=== PATIENT | male | born 1995 | race Caucasian/White ===

== ENCOUNTER 2020-10-08 11:23 | Emergency (ER) | payer OTHER ==
[~2020-10-08] VITALS: Ht 175.3 cm; Wt 95.5 kg
[~2020-10-08 11:23] MED LIST: HYDR-3715 PO; IBUP200T45 PO
--- OUTSIDE RECORDS SUMMARY | 2020-10-08 11:33 | CCD ---
Author Author [facility] Organization [facility] Address Unknown Phone Unavailable Support Name Relationship Address Phone PHAM Next Of Kin [address] [place], [place] [id number] Lauren HAGEN Next Of [address] [place] [address] [employer] Next Of [address] [place] [address] DANIEL QUANPANTERA HAGEN Next Of [address] [place] [address] JOSE SUNSHINE Next Of Kin [address] [place] [address] Galen HAGEN Next Of Kin [address] [place] [address] [facility] Next Of Kin Unknown Unavailable Re-disclosure Warning The records that you are about to access may contain information from federally-assisted alcohol or drug abuse programs. If such information is present, then the following federally mandated warning applies: This information has been disclosed to you from records protected by federal confidentiality rules (42 CFR part 2). The federal rules prohibit you from making any further disclosure of this information unless further disclosure is expressly permitted by the written consent of the person to whom it pertains or as otherwise permitted by 42 CFR part 2. A general authorization for the release of medical or other information is NOT sufficient for this purpose. The Federal rules restrict any use of the information to criminally investigate or prosecute any alcohol or drug abuse patient.The records that you are about to access may contain highly sensitive health information, the redisclosure of which is protected by Article 27-F of the [facility] Public Health law. If you continue you may have access to information: Regarding HIV / AIDS; Provided by facilities licensed or operated by the [facility] Office of Mental Health; or Provided by the [facility] Office for People With Developmental Disabilities. If such information is present, then the following [facility] mandated warning applies: This information has been disclosed to you from confidential records which are protected by state law. State law prohibits you from making any further disclosure of this information without the specific written consent of the person to whom it pertains, or as otherwise permitted by law. Any unauthorized further disclosure in violation of state law may result in a fine or long term sentence or both. A general authorization for the release of medical or other information is NOT sufficient authorization for further disc losure. Family History Family Member Name Family Member Gender Family Member Status Date o f Status Description Data Source(s) Unknown Female Problem [facility] ([facility], ) Insurance Providers Payer name Policy type / Coverage type Policy ID Covered alliance party ID Covered alliance party's relationship to lorenz Policy Lorenz Plan Information [facility] O [id number] C [id number] [facility] [id number] CHILD [id number] [facility] [id number] CHILD [id number] [employer] COMP INS [id number] EMPLOYEE [id number] WORKMANS COMP INS [id number] EMPLOYEE [id number] WORKMANS COMP INS [id number] EMPLOYEE [id number] REVERE [id number] EMPLOYEE [id number] [facility] P[facility] 302/307 [id number] [id number] [employer] B [id number] C [id number] [id number] PERSONAL PAY XX SELF XX
--- NOTE | 2020-10-08 12:00 | REP ---
INDICATION: FALL COMPARISON: None. TECHNIQUE: Four views left knee. FINDINGS: There is no evidence of acute fracture, dislocation, or intrinsic bone disease. IMPRESSION: No fracture or dislocation. <Electronically signed by Cezar Morales > 10/08/20 [id number]
--- OUTSIDE RECORDS SUMMARY | 2020-10-08 12:01 | CCD ---
Author Author [facility] Organization [facility] Address Unknown Phone Unavailable Support Name Relationship Address Phone PHAM Next Of Kin [address] [place], [place] [id number] Lauren HAGEN Next Of Kin [address] [place] [address] CELL [employer] Next Of Kin [address] [place] [address] DANIEL QUANPANTERA HAGEN Next Of Kin [address] [place] [address] JOSE SUNSHINE Next Of Kin [address] [place] [address] Galen HAGEN Next Of Kin [address] [place] [address] [facility] Next Of Kin Unknown Unavailable Re-disclosure [...] is protected by Article 27-F of the [facility] Public Health law. If you continue you may have access to information: Regarding HIV / AIDS; Provided by facilities licensed or operated by the [facility] Office of Mental Health; or Provided by the [facility] Office for People With Developmental Disabilities. If such information is present, then the following [facility] mandated warning applies: This information has been [...] law may result in a fine or chcf sentence or both. A general authorization for the release of medical or other information is NOT sufficient authorization for further disc losure. Family History Family Member Name Family Member Gender Family Member Status Date o f Status Description Data Source(s) Unknown Female Problem [facility] ([facility], ) Insurance Providers Payer name Policy type / Coverage type Policy ID Covered libertarian ID Covered libertarian's relationship to lorenz Policy Lorenz Plan Information [facility] O [id number] C [id number] [facility] [id number] CHILD [id number] [facility] [id number] CHILD [id number] WORKMANS COMP INS [id number] EMPLOYEE [id number] WORKMANS COMP INS [id number] EMPLOYEE [id number] WORKMANS COMP INS [id number] EMPLOYEE [id number] REVERE [id number] EMPLOYEE [id number] [facility]/307 [id number] [id number] [employer] B [id number] C [id number] [id number] PERSONAL PAY XX SELF XX
[2020-10-08 13:20] VITALS: BP 129/79
== END 2020-10-08 13:43 | disposition home or self-care (01) ==
LOC: M ED 11:23
DX: S86.302A Unspecified injury of muscle(s) and tendon(s) of peroneal muscle group at lower leg level, left leg, initial encounter (principal); W01.198A Fall on same level from slipping, tripping and stumbling with subsequent striking against other object, initial encounter; Y92.89 Other specified places as the place of occurrence of the external cause; Y93.89 Activity, other specified; Y99.0 Civilian activity done for income or pay; Z88.5 Allergy status to narcotic agent

== ENCOUNTER → 2021-05-27 | Outpatient (REF) | payer OTHER ==
[~2021-05-27] MED LIST changes: -IBUP200T45 PO; +IBUP200T46 PO
== END ==
LOC: M SFHCCLAY 16:28
PROVIDERS: ATTEND Nurse Practitioner Family
DX: L72.9 Follicular cyst of the skin and subcutaneous tissue, unspecified (principal)

== ENCOUNTER → 2021-10-27 | Outpatient (REF) | payer OTHER ==
[2021-10-27 13:15] LABS: HEPATITIS B CORE ANTIBODY IGM NEGATIVE (NEGATIVE); HEPATITIS B SURFACE ANTIGEN NEGATIVE (NEGATIVE); HEPATITIS C VIRUS ABY INDEX < 0.0 INDEX (<0.8); HIV 1&2 SCREEN CENTAUR NEGATIVE (NEGATIVE)
== END ==
LOC: M SFHCCLAY 08:55
PROVIDERS: ATTEND Nurse Practitioner Family
DX: N48.9 Disorder of penis, unspecified (principal); Z20.2 Contact with and (suspected) exposure to infections with a predominantly sexual mode of transmission

== ENCOUNTER 2024-10-27 16:53 | Emergency (ER) | payer OTHER ==
[~2024-10-27] VITALS: Ht 177.8 cm; Wt 99.2 kg
[2024-10-27] MEDS ORDERED: TIZA4CAP PO (19:57)
[2024-10-27] MEDS: KETOROLAC 30 MG/ML 1ML VIAL IM ONE (20:09)
[2024-10-27 20:19] VITALS: BP 133/86; TEMP 97.4; O2SAT 97
== END 2024-10-27 20:29 | disposition home or self-care (01) ==
LOC: M ED 16:53
DX: M62.838 Other muscle spasm (principal); Z88.5 Allergy status to narcotic agent; Z79.1 Long term (current) use of non-steroidal anti-inflammatories (NSAID); Z79.899 Other long term (current) drug therapy
CPT/HCPCS: 70450; 72125; 96372; 99283; J1885

== ENCOUNTER → 2025-08-13 | Outpatient (CLI) | payer OTHER ==
[~2025-08-13] MED LIST changes: +TIZA4CAP PO
== END ==
LOC: M SOG 07:40
PROVIDERS: ATTEND Neuromusculoskeletal Medicine, Sports Medicine
DX: M25.511 Pain in right shoulder (principal)